=== PATIENT | female | born 1965 | race Caucasian/White ===

== ENCOUNTER → 2016-09-18 | Outpatient (CLI) | payer MEDICARE ==
[~2016-09-18] MED LIST: ACHD5005 PO; ALBU8.5H2 IH; ASP325T PO; ASP81CT PO; ASPI-266 PO; BIRTH CONTROL PO; CHOL500019 PO; CRS350T PO; CYAN100053 IJ; CYCL10TA9 PO; FEXO180T PO; FEXO1TAB42 PO; GBPN300C; GBPN600T PO; GFN600TCR PO; HYDR-3714 PO; HYDR1CAP2; HYDR1TAB86 PO; IBP800T; IBP800T PO; IBUP-30 PO; IBUP800T26 PO; LEVO500T69 PO; MEGE20TA6; METO-272 PO; MONT10TA21 PO; MTP50T PO; OXYC-12 PO; OXYC-272 PO; OXYC-281 PO; OXYC1TAB28 PO; PREG150C PO; PREG75CA PO; TRIA1CAP PO; TRIA1TAB2; TRIA1TAB2 PO; TRIA1TAB3 PO; TRIA1TAB5 PO; TRM50T; VIT1TABL83 PO; ZOVIA PO; [UNRECOGNIZED DRUG - OTHER] PO; b-12 IM
--- NOTE | 2016-09-18 14:12 | Diagnostic Imaging Report ---
INDICATION: Right knee pain. AP, oblique, and lateral views of the right knee are obtained. FINDINGS: There is moderate medial joint space narrowing with osteophyte formation. Lateral joint space appears relatively preserved. There is mild patellofemoral spurring. There is no acute-appearing bony abnormality. IMPRESSION: Osteoarthritic changes of the right knee, especially in the medial compartment. No definite acute bony abnormality. Dictated by: Dictated on workstation # [id number]
== END ==
LOC: RAD 13:55
PROVIDERS: ATTEND Internal Medicine
DX: M25.561 Pain in right knee (principal)
CPT/HCPCS: 73562

== ENCOUNTER → 2016-09-28 | Outpatient (CLI) | payer MEDICARE ==
--- NOTE | 2016-09-28 12:14 | Diagnostic Imaging Report ---
PROCEDURE: MRI right joint lower extremity without contrast. TECHNIQUE: Multiplanar, multisequence non contrast-enhanced MRI of the right lower extremity was accomplished. INDICATION: Right knee pain. FINDINGS: There is a moderate suprapatellar effusion. The extensor mechanism demonstrates mild tendinosis in the distal quadriceps and distal patellar tendons with no significant tear seen otherwise. The ACL and the PCL are intact. There is a complex tear involving the posterior horn and extending into the body of the medial meniscus. There is extrusion of the body of the medial meniscus as well. The lateral meniscus demonstrates increased signal within the substance of the meniscus itself without definite tear, likely degenerative related. The MCL is slightly buckled by the extruded meniscus with no tear. The lateral collateral ligament complex appears intact. There is a tricompartment osteophyte formation most prominent in the medial and lateral compartments. There is a severe cartilage thinning in the medial compartment with subchondral reactive edema. The lateral compartment demonstrates mild thinning of the cartilage only. The patellofemoral compartment demonstrates also relatively preserved thickness of the cartilage with evidence of cartilage fissuring however. The muscle bulk and signal around the knee is normal. There is a tiny Belcher's cyst measuring 1 x 0.3 x 2.9 cm craniocaudal dimension with some adjacent free fluid suggestive of leakage. IMPRESSION: 1. Prominent osteoarthritis changes, severe in the medial compartment. 2. Complex tear involving the posterior horn of the medial meniscus extending to the body. There is also extrusion of the body of the medial meniscus. 3. Leaking small Belcher's cyst. 4. Moderate suprapatellar effusion. Dictated by: Dictated on workstation # [id number]
== END ==
LOC: RAD 10:26
PROVIDERS: ATTEND Nurse Practitioner
DX: M23.231 Derangement of other medial meniscus due to old tear or injury, right knee (principal); M17.11 Unilateral primary osteoarthritis, right knee; M66.0 Rupture of popliteal cyst; M25.461 Effusion, right knee
CPT/HCPCS: 73721

== ENCOUNTER → 2017-11-26 | Outpatient (CLI) | payer MEDICARE ==
[~2017-11-26] MED LIST changes: +IOHEXOL 350 MG/ML 100 ML (OMNIPAQUE 350) VIAL IV ONE; +NS 250 ML (IVPB) BAG IV ONE
== END ==
LOC: RAD 07:23
PROVIDERS: ATTEND Internal Medicine
DX: M54.16 Radiculopathy, lumbar region (principal); Z53.8 Procedure and treatment not carried out for other reasons

== ENCOUNTER 2018-01-11 07:29 | Day surgery (SDC) | payer MEDICARE ==
[~2018-01-11] VITALS: Ht 177.8 cm; Wt 104.3 kg
[~2018-01-11 07:29] MED LIST changes: -IOHEXOL 350 MG/ML 100 ML (OMNIPAQUE 350) VIAL IV ONE; -NS 250 ML (IVPB) BAG IV ONE
--- OUTSIDE RECORDS SUMMARY | 2018-01-11 07:35 | XMS REPORT | Continuity of Care Document ---
Author Author [facility] Organization [facility] Address Unknown Phone Unavailable Allergies Active Description Code Type Severity Reaction Onset Reported/Identified Relationship to Patient Clinical Status Yes erythromycin base [id number] Drug Allergy Mild HIVES,N/V 07/22/2009 Yes Sulfa (Sulfonamide Antibiotics) [id number] Drug Allergy Mild HIVES 2009 Yes TAPE TAPE Unknown N/A 01/07/2013 Yes azithromycin [id number] Drug Allergy Unknown HIVES 07/02/2013 Medications There is no data. 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 04/23/2012 Ot 785.1 PALPITATIONS 04/23/2012 Ot 794.30 ABN CARDIOVASC STUDY NOS 04/23/2012 Ot V58.69 OTH MED,LT, CURRENT USE 07/22/2012 Ot 785.1 PALPITATIONS 08/29/2012 Ot 847.0 SPRAIN OF NECK 08/29/2012 Ot 847.1 SPRAIN THORACIC REGION 08/29/2012 Ot E000.8 OTHER EXTERNAL CAUSE STATUS 08/29/2012 Ot E849.0 ACCIDENT IN HOME 08/29/2012 Ot E927.0 OVEREXERTION FROM SUDDEN STRENUOUS MOVEM 08/29/2012 Ot V57.1 PHYSICAL THERAPY NEC 10/12/2012 SUZIE MAGALLANES, EVELYN Mathis Ot 682.6 CELLULITIS OF LEG 01/07/2013 ROSS GALINDO Ot 724.4 LUMBOSACRAL NEURITIS NOS 01/07/2013 ROSS GALINDO Ot 924.8 MULTIPLE CONTUSIONS NEC 01/07/2013 ROSS GALINDO Ot 959.19 OTH INJURY OF OTHER SITES OF TRUNK 01/07/2013 ROSS GALINDO Ot E000.0 CIVILIAN ACTIVITY DONE FOR INCOME OR PAY 01/07/2013 ROSS GALINDO Ot E849.6 ACCIDENT IN PUBLIC BLDG 01/07/2013 ROSS GALINDO Ot E885.9 FALL FROM SLIPPING, TRIPPING, OR STUMBLI 02/21/2013 SOFYA GRAHAM MD Ot 401.9 HYPERTENSION NOS 02/21/2013 SOFYA GRAHAM MD Ot 493.90 ASTHMA, UNSPECIFIED 02/21/2013 SOFYA GRAHAM MD Ot 724.02 SPINAL STENOSIS, LUMBAR REG, W/OUT NEURO 02/21/2013 SOFYA GRAHAM MD Ot 724.4 LUMBOSACRAL NEURITIS NOS 02/21/2013 SOFYA GRAHAM MD Ot 737.30 IDIOPATHIC SCOLIOSIS 05/22/2014 Ot 722.52 05/22/2014 Ot 959.19 05/22/2014 Ot E000.8 05/22/2014 Ot E030 05/22/2014 Ot E849.6 05/22/2014 Ot E888.9 05/22/2014 Ot 214.9 05/22/2014 Ot V72.83 05/22/2014 Ot V74.8 05/22/2014 Ot 719.06 05/22/2014 Ot 959.7 05/22/2014 Ot E000.8 05/22/2014 Ot E849.0 05/22/2014 Ot E888.9 05/22/2014 Ot 241.0 05/22/2014 Ot 397.0 05/22/2014 Ot 424.0 05/22/2014 Ot 785.1 05/22/2014 Ot 786.59 05/22/2014 Ot 785.1 05/22/2014 Ot 786.59 05/22/2014 Ot 785.1 05/22/2014 Ot V58.69 05/22/2014 Ot 785.1 05/22/2014 ALIA MILLER DO Ot 724.3 05/22/2014 SOFYA GRAHAM MD Ot 724.02 05/22/2014 SOFYA GRAHAM MD Ot V72.63 05/22/2014 SOFYA GRAHAM MD Ot V74.8 05/22/2014 SOFYA GRAHAM MD Ot 724.02 05/22/2014 SOFYA GRAHAM MD Ot 737.30 05/22/2014 SOFYA GRAHAM MD Ot 738.4 05/22/2014 SOFYA GRAHAM MD Ot V45.4 05/27/2014 ALIA MILLER DO Ot 268.9 VITAMIN D DEFICIENCY NOS 05/27/2014 ALIA MILLER DO Ot 722.10 LUMBAR DISC DISPLACEMENT 05/27/2014 ALIA MILLER DO Ot V45.4 ARTHRODESIS STATUS 06/08/2014 Ot 722.52 06/08/2014 Ot 959.19 06/08/2014 Ot E000.8 06/08/2014 Ot E030 06/08/2014 Ot E849.6 06/08/2014 Ot E888.9 06/08/2014 Ot 214.9 06/08/2014 Ot V72.83 06/08/2014 Ot V74.8 06/08/2014 Ot 719.06 06/08/2014 Ot 959.7 06/08/2014 Ot E000.8 06/08/2014 Ot E849.0 06/08/2014 Ot E888.9 06/08/2014 Ot 241.0 06/08/2014 Ot 397.0 06/08/2014 Ot 424.0 06/08/2014 Ot 785.1 06/08/2014 Ot 786.59 06/08/2014 Ot 785.1 06/08/2014 Ot 786.59 06/08/2014 Ot 785.1 06/08/2014 Ot V58.69 06/08/2014 Ot 785.1 06/08/2014 ALIA MILLER DO Ot 724.3 06/08/2014 SOFYA GRAHAM MD Ot 724.02 06/08/2014 SOFYA GRAHAM MD Ot V72.63 06/08/2014 SOFYA GRAHAM MD Ot V74.8 06/08/2014 SOFYA GRAHAM MD Ot 724.02 06/08/2014 SOFYA GRAHAM MD Ot 737.30 06/08/2014 SOFYA GRAHAM MD Ot 738.4 06/08/2014 SOFYA GRAHAM MD Ot V45.4 06/19/2014 ANGI MAGALLANES, TOPHER Ot 574.10 CHOLELITH W CHOLECYS NEC 06/26/2014 ALIA MILLER DO Ot 458.9 06/26/2014 ALIA MILLER DO Ot 785.0 07/02/2014 ANGI MAGALLANES, TOPHER Ot 574.20 07/02/2014 ANGI MAGALLANES, TOPHER Ot V72.63 07/02/2014 ANGI MAGALLANES, TOPHER Ot V74.8 09/01/2014 ANGI MAGALLANES, TOPHER Ot 574.20 09/01/2014 ANGI MAGALLANES, TOPHER Ot V72.63 09/01/2014 ANGI MAGALLANES, TOPHER Ot V74.8 11/05/2014 TAMARA KENT Ot 717.3 03/03/2015 ALIA MILLER DO Ot R05 COUGH 03/23/2015 ALIA MILLER DO Ot M54.16 03/23/2015 ALIA MILLER DO Ot T84.498A 03/29/2015 ALIA MILLER DO Ot M54.16 03/29/2015 ALIA MILLER DO Ot T84.498A 06/24/2015 ALIA MILLER DO Ot R00.2 01/05/2016 Ot 241.0 NONTOX UNINODULAR GOITER 01/05/2016 Ot 397.0 TRICUSPID VALVE DISEASE 01/05/2016 Ot 424.0 MITRAL VALVE DISORDER 01/05/2016 Ot 785.1 PALPITATIONS 01/05/2016 Ot 786.59 CHEST PAIN NEC 01/05/2016 Ot 785.1 PALPITATIONS 01/05/2016 Ot 786.59 CHEST PAIN NEC 01/05/2016 Ot 785.1 PALPITATIONS 01/05/2016 Ot V58.69 OTH MED,LT, CURRENT USE 01/05/2016 Ot 785.1 PALPITATIONS 01/05/2016 ALIA MILLER DO Ot 724.3 SCIATICA 01/05/2016 SOFYA GRAHAM MD Ot 724.02 SPINAL STENOSIS, LUMBAR REG, W/OUT NEURO 01/05/2016 SOFYA GRAHAM MD Ot V72.63 PRE-PROCEDURAL LABORATORY EXAMINATION 01/05/2016 SOFYA GRAHAM MD Ot V74.8 SCREEN-BACTERIAL DIS NEC 01/05/2016 SOFYA GRAHAM MD Ot 724.02 SPINAL STENOSIS, LUMBAR REG, W/OUT NEURO 01/05/2016 SOFYA GRAHAM MD Ot 737.30 IDIOPATHIC SCOLIOSIS 01/05/2016 SOFYA GRAHAM MD Ot 738.4 ACQ SPONDYLOLISTHESIS 01/05/2016 SOFYA GRAHAM MD Ot V45.4 ARTHRODESIS STATUS 01/05/2016 ALIA MILLER DO Ot 458.9 HYPOTENSION NOS 01/05/2016 ALIA MILLER DO Ot 785.0 TACHYCARDIA NOS 01/05/2016 TOPHER WHITLEY MD Ot 574.20 CHOLELITHIASIS NOS 01/05/2016 TOPHER WHITLEY MD Ot V72.63 PRE-PROCEDURAL LABORATORY EXAMINATION 01/05/2016 TOPHER WHITLEY MD Ot V74.8 SCREEN-BACTERIAL DIS NEC 01/05/2016 TAMARA KENT [facility]ITAL[facility] JOB TITLES Ot 717.3 DERANG MED MENISCUS NEC 01/05/2016 ALIA MILLER DO Ot M54.16 RADICULOPATHY, LUMBAR REGION 01/05/2016 ALIA MILLER DO Ot T84.498A [facility] COMPL OF INTERNAL ORTH DEVICES, IMP 01/05/2016 ALIA MILLER DO Ot R00.2 PALPITATIONS 01/07/2016 ALIA MILLER DO Ot E01.0 IODINE-DEFICIENCY RELATED DIFFUSE (ENDEM 03/02/2016 ALIA MILLER DO Ot E01.0 IODINE-DEFICIENCY RELATED DIFFUSE (ENDEM 03/07/2016 ALIA MILLER DO Ot E01.0 IODINE-DEFICIENCY RELATED DIFFUSE (ENDEM 09/18/2016 Ot 397.0 TRICUSPID VALVE DISEASE 09/18/2016 Ot 424.0 MITRAL VALVE DISORDER 09/18/2016 Ot 785.1 PALPITATIONS 09/18/2016 Ot 786.59 CHEST PAIN NEC 09/18/2016 Ot 785.1 PALPITATIONS 09/18/2016 Ot 786.59 CHEST PAIN NEC 09/18/2016 Ot 785.1 PALPITATIONS 09/18/2016 Ot V58.69 OT MED,LT, CURRENT USE 09/18/2016 Ot 785.1 PALPITATIONS 09/18/2016 ALIA MILLER DO Ot 724.3 SCIATICA 09/18/2016 SOFYA GRAHAM MD Ot 724.02 SPINAL STENOSIS, LUMBAR REG, W/OUT NEURO 09/18/2016 SOFYA GRAHAM MD Ot V72.63 PRE-PROCEDURAL LABORATORY EXAMINATION 09/18/2016 SOFYA GRAHAM MD Ot V74.8 SCREEN-BACTERIAL DIS NEC 09/18/2016 SOFYA GRAHAM MD Ot 724.02 SPINAL STENOSIS, LUMBAR REG, W/OUT NEURO 09/18/2016 SOFYA GRAHAM MD Ot 737.30 IDIOPATHIC SCOLIOSIS 09/18/2016 SOFYA GRAHAM MD Ot 738.4 ACQ SPONDYLOLISTHESIS 09/18/2016 SOFYA GRAHAM MD Ot V45.4 ARTHRODESIS STATUS 09/18/2016 ALIA MILLER DO Ot 458.9 HYPOTENSION NOS 09/18/2016 ALIA MILLER DO Ot 785.0 TACHYCARDIA NOS 09/18/2016 TOPHER WHITLEY MD Ot 574.20 CHOLELITHIASIS NOS 09/18/2016 TOPHER WHITLEY MD Ot V72.63 PRE-PROCEDURAL LABORATORY EXAMINATION 09/18/2016 TOPHER WHITLEY MD Ot V74.8 SCREEN-BACTERIAL DIS NEC 09/18/2016 TAMARA KENT Ot 717.3 DERANG MED MENISCUS NEC 09/18/2016 ALIA MILLER DO Ot M54.16 RADICULOPATHY, LUMBAR REGION 09/18/2016 ALIA MILLER DO Ot T84.498A [facility] COMPL OF INTERNAL ORTH DEVICES, IMP 09/18/2016 ALIA MILLER DO Ot R00.2 PALPITATIONS 09/18/2016 ALIA MILLER DO Ot E01.0 IODINE-DEFICIENCY RELATED DIFFUSE (ENDEM 10/19/2016 TAMARA KENT Ot M17.11 UNILATERAL PRIMARY OSTEOARTHRITIS, RIGHT 10/19/2016 TAMARA KENT Ot M23.231 DERANG OF MEDIAL MENISCUS DUE TO OLD TEA 10/19/2016 TAMARA KENT Ot M25.461 EFFUSION, RIGHT KNEE 10/19/2016 TAMARA KENT Ot M66.0 RUPTURE OF POPLITEAL CYST 10/23/2016 ALIA MILLER DO Ot M25.561 PAIN IN RIGHT KNEE 11/26/2017 Ot 785.1 PALPITATIONS 11/26/2017 Ot V58.69 [facility] MED,LT, CURRENT USE 11/26/2017 Ot 785.1 PALPITATIONS 11/26/2017 ALIA MILLER DO Ot 724.3 SCIATICA 11/26/2017 SOFYA GRAHAM MD Ot 724.02 SPINAL STENOSIS, LUMBAR REG, W/OUT NEURO 11/26/2017 SOFYA GRAHAM MD Ot V72.63 PRE-PROCEDURAL LABORATORY EXAMINATION 11/26/2017 SOFYA GRAHAM MD Ot V74.8 SCREEN-BACTERIAL DIS NEC 11/26/2017 SOFYA GRAHAM MD Ot 724.02 SPINAL STENOSIS, LUMBAR REG, W/OUT NEURO 11/26/2017 SOFYA GRAHAM MD Ot 737.30 IDIOPATHIC SCOLIOSIS 11/26/2017 SOFYA GRAHAM MD Ot 738.4 ACQ SPONDYLOLISTHESIS 11/26/2017 SOFYA GRAHAM MD Ot V45.4 ARTHRODESIS STATUS 11/26/2017 ALIA MILLER DO Ot 458.9 HYPOTENSION NOS 11/26/2017 ALIA MILLER DO Ot 785.0 TACHYCARDIA NOS 11/26/2017 TOPHER WHITLEY MD Ot 574.20 CHOLELITHIASIS NOS 11/26/2017 TOPHER WHITLEY MD Ot V72.63 PRE-PROCEDURAL LABORATORY EXAMINATION 11/26/2017 TOPHER WHITLEY MD Ot V74.8 SCREEN-BACTERIAL DIS NEC 11/26/2017 TAMARA KENT Ot 717.3 DERANG MED MENISCUS NEC 11/26/2017 ALIA MILLER DO Ot M54.16 RADICULOPATHY, LUMBAR REGION 11/26/2017 ALIA MILLER DO Ot T84.498A [facility] COMPL OF INTERNAL ORTH DEVICES, IMP 11/26/2017 ALIA MILLER DO Ot R00.2 PALPITATIONS 11/26/2017 ALIA MILLER DO Ot E01.0 IODINE-DEFICIENCY RELATED DIFFUSE (ENDEM 11/26/2017 ALIA MILLER DO Ot M25.561 PAIN IN RIGHT KNEE 11/26/2017 TAMARA KENT Ot M17.11 UNILATERAL PRIMARY OSTEOARTHRITIS, RIGHT 11/26/2017 TAMARA KENT Ot M23.231 DERANG OF MEDIAL MENISCUS DUE TO OLD TEA 11/26/2017 TAMARA KENT Ot M25.461 EFFUSION, RIGHT KNEE 11/26/2017 TAMARA KENT Ot M66.0 RUPTURE OF POPLITEAL CYST 11/27/2017 ALIA MILLER DO Ot M54.16 RADICULOPATHY, LUMBAR REGION 11/27/2017 ALIA MILLER DO Ot Z53.8 PROCEDURE AND TREATMENT NOT CARRIED OUT Procedures Code Description Performed By Performed On 81.06 LUMBAR LUMBOSACRAL FUSION OF ANTERIOR 02/17/2013 81.07 LUMBAR LUMBOSACRAL FUSION OF POSTERIOR 02/17/2013 81.63 FUSION/REFUS OF 4-8 VERTEBRAE 02/17/2013 84.51 INSERTION OF INTERBODY SPINAL FUSION DEV 02/17/2013 Results There is no data. Encounters ACCT No. Visit Date/Time Discharge Status Pt. Type Provider Facility Loc./Unit Complaint [id number] 12/11/2017 09:00:00 12/11/2017 23:59:59 CLS Preadmit ALIA MILLER DO [facility] RAD LOW BACK PAIN [id number] 11/26/2017 07:23:00 11/26/2017 23:59:59 CLS Outpatient ALIA MILLER DO [facility] RAD RACICULOPATHY [id number] 09/28/2016 10:26:00 09/28/2016 23:59:59 CLS Outpatient TAMARA KENT [facility] RAD M23.231 [id number] 09/18/2016 13:55:00 09/18/2016 23:59:59 CLS Outpatient ALIA MILLER DO [facility] RAD RT KNEE PAIN [id number] 01/05/2016 08:50:00 01/05/2016 23:59:59 CLS Outpatient ALIA MILLER DO [facility] RAD THYROMEGALY,TYPE 1 DIABETES [id number] 06/08/2015 08:00:00 06/08/2015 23:59:59 CLS Outpatient ALIA MILLER DO [facility] CARD PALPITATIONS [id number] 03/09/2015 09:11:00 03/09/2015 23:59:59 CLS Outpatient ALIA MILLER DO [facility] RAD FAILED LUMBAR FUSION [id number] 03/02/2015 08:20:00 03/03/2015 08:29:00 DIS Outpatient ALIA MILLER DO [facility] LAB COUGH [id number] 10/06/2014 08:07:00 10/06/2014 23:59:59 CLS Outpatient DONTE TAMARA Chelsey GUERRA [facility] RAD MEDIAL MENISCUS TEAR [id number] 06/19/2014 09:46:00 06/19/2014 16:40:00 DIS Outpatient TOPHER WHITLEY MD [facility] SDC GALLSTONES [id number] 06/18/2014 11:49:00 06/18/2014 23:59:59 CLS Outpatient TOPHER WHITLEY MD [facility] PREOP GALLSTONES [id number] 06/08/2014 09:19:00 06/08/2014 23:59:59 CLS Outpatient ALIA MILLER DO [facility] CARD HYPOTENSION SYMPTOMS OF CARDIOVASULAR SYSTM [id number] 05/27/2014 08:30:00 05/27/2014 14:50:00 DIS Outpatient ALIA MILLER DO [facility] RAD DISPLACEMENT OF LUMBAR [id number] 07/02/2013 08:28:00 07/02/2013 23:59:59 CLS Outpatient SOFYA GRAHAM MD [facility] RAD LUMBAR STENOSIS [id number] 02/17/2013 07:45:00 02/21/2013 11:45:00 DIS Inpatient SOFYA GRAHAM MD [facility] SURGICAL LUMBAR STENOSIS [id number] 02/11/2013 11:59:00 02/11/2013 23:59:59 CLS Outpatient SOFYA GRAHAM MD [facility] PREOP LUMBAR STENOSIS [id number] 01/07/2013 16:50:00 01/07/2013 19:38:00 DIS Emergency ROSS GALINDO [facility] ER FELL AT WORK [id number] 12/11/2012 12:57:00 12/11/2012 23:59:59 CLS Outpatient ALIA MILLER DO [facility] RAD RT SCIATICA [id number] 10/10/2012 15:03:00 10/12/2012 17:45:00 DIS Inpatient SUZIE MAGALLANES, EVELYN Mathis [facility] SURGICAL CELLULITIS OF LEFT LEG [id number] 05/22/2014 11:29:00 Document Registration [id number] 05/22/2014 11:29:00 Document Registration [id number] 07/29/2012 15:58:00 Document Registration [id number] 07/23/2012 15:00:00 Document Registration [id number] 06/24/2012 16:46:00 Document Registration [id number] 05/17/2012 07:00:00 Document Registration [id number] 04/23/2012 08:07:00 Document Registration [id number] 02/19/2012 11:01:00 Document Registration [id number] 02/14/2012 12:52:00 Document Registration [id number] 11/29/2010 10:28:00 Document Registration [id number] 10/02/2010 23:18:00 Document Registration [id number] 12/03/2009 15:11:00 Document Registration [id number] 07/22/2009 15:44:00 Document Registration [id number] 06/21/2009 14:51:00 Document Registration [id number] 10/07/2014 04:24:54 ACT Document Registration
[2018-01-11 07:40] VITALS: BP 128/87
[2018-01-11 08:00] LABS: HEMOGLOBIN 13.2 G/DL (11.5-16.0); MEAN PLATELET VOLUME 10.9 FL (7.4-10.4); RED BLOOD COUNT 4.48 10^6/uL (4.35-5.85); RED CELL DISTRIBUTION WIDTH 13.4 % (10.0-14.5); WHITE BLOOD COUNT 9.9 10^3/uL (4.3-11.0)
[2018-01-11 08:13] LABS: PROTHROMBIN TIME PATIENT 13.1 SEC (12.2-14.7)
[2018-01-11] MEDS: IOHEXOL 240 MGI/ML 20 ML (OMNIPAQUE) VIAL IV ONE (08:57)
[2018-01-11 09:03] VITALS: BP 115/73
[2018-01-11] MEDS ORDERED: ACETAMINOPHEN 500 MG TAB (TYLENOL) PO PRN (09:15)
--- NOTE | 2018-01-11 09:27 | Diagnostic Imaging Report ---
PROCEDURE: CT lumbar spine with contrast. TECHNIQUE: Multiple contiguous axial images were obtained through the lumbar spine after the intrathecal administration of contrast. Sagittal and coronal reformations were then performed. INDICATION: Back pain. COMPARISON: Comparison is made with prior examination from 03/09/2015. FINDINGS: There are postsurgical changes of an L2 through L5 fusion again noted. There has been an L4 laminectomy. The vertebral body heights are well maintained. There is some degenerative lumbar rotoscoliosis predominantly convex to the right. Conus medullaris is seen at approximately L1 is normal in appearance. The T11-T12 disc is unremarkable. At T12-L1, there is loss of disc height and signal intensity. There is broad-based annular bulging resulting in slight effacement of ventral thecal sac. There is no significant neuroforaminal encroachment. There has been marked progression of the degenerative disc disease at L1-L2. There is almost complete loss of disc space with marked sclerosis in the endplates. There is broad-based annular bulging, facet disease and thickening of the ligamentum flavum. There is some moderate central spinal stenosis. There is moderate right and severe left neuroforaminal encroachment. At L2-L3, the spinal canal is adequately decompressed. There is some persistent at least moderate neuroforaminal encroachment on the left. At L3-L4 spinal canal is adequately decompressed. There is marked facet disease. There is qamy-oj-veckitqx left neuroforaminal encroachment. There is no neuroforaminal encroachment on the right. At L4-L5 spinal canal is adequately decompressed. There is no significant neuroforaminal encroachment. At L5-S1, there is vacuum disc. There is some broad-based annular bulging. There is moderate right neuroforaminal encroachment. There is no significant neuroforaminal encroachment on the left. The abdominal aorta is nonaneurysmal. The visualized portions of the kidneys are unremarkable. Gallbladder appears to be surgically absent. IMPRESSION: Stable post surgical changes of an L2 through L5 posterior instrumentation and decompression as described. There is no change in the appearance of the misplaced left L3 pedicle screw. Diffuse lumbar spondylosis and multilevel degenerative disc disease as detailed above. There has been further marked progression of the degenerative disc disease at L1-L2. Dictated by: Dictated on workstation # [id number]
--- NOTE | 2018-01-11 09:57 | Diagnostic Imaging Report ---
INDICATION: Back pain. TECHNIQUE AND FINDINGS: After explaining the risks, benefits and alternatives of the procedure to the patient written consent was obtained. Patient was placed on a table in prone position. Patient's back was prepped and draped utilizing maximal sterile barrier technique. Local anesthesia was obtained with 2% lidocaine. Needle was advanced into the thecal sac under fluoroscopic control at L4 through the laminectomy defect. 12 cc of Omnipaque 240 was injected. The needle was removed and adequate hemostasis was obtained. There are postsurgical changes at L2-L4 fusion. There appears to be a moderate ventral extradural defect at L1-2. IMPRESSION: Successful lumbar myelogram. Please correlate with post myelography CT findings. Dictated by: Dictated on workstation # [id number]
[2018-01-11 10:15] VITALS: BP 130/85
[2018-01-11 10:45] VITALS: BP 127/80
== END 2018-01-11 10:55 | disposition home or self-care (01) ==
LOC: RAD 07:29 → SDC 09:03 → RAD 10:55
PROVIDERS: ATTEND Internal Medicine
DX: M47.816 Spondylosis without myelopathy or radiculopathy, lumbar region (principal); M51.35 Other intervertebral disc degeneration, thoracolumbar region; M51.27 Other intervertebral disc displacement, lumbosacral region; M99.73 Connective tissue and disc stenosis of intervertebral foramina of lumbar region; M51.25 Other intervertebral disc displacement, thoracolumbar region; M41.86 Other forms of scoliosis, lumbar region; Z98.890 Other specified postprocedural states; Z98.1 Arthrodesis status
CPT/HCPCS: 36415; 62284; 72132; 72265; 77002; 84703; 85027; 85610; 85730

== ENCOUNTER → 2019-05-08 | Outpatient (CLI) | payer MEDICARE ==
[~2019-05-08] MED LIST changes: +GADOBUTROL 10 MMOL/10 ML (GADAVIST) VIAL IV ONE
--- NOTE | 2019-05-08 15:11 | Diagnostic Imaging Report ---
PROCEDURE: MR imaging of the brain with and without contrast. TECHNIQUE: Multiplanar, multisequence MR imaging of the brain was performed with and without contrast. INDICATION: Diplopia. FINDINGS: Ventricles and sulci are within normal limits for size. Frazier and white matter signal intensities are unremarkable. There is no restricted diffusion to indicate an infarct. Visualized paranasal sinuses are clear. There is fluid filling the left mastoid air cells. There is no abnormal contrast enhancement. IMPRESSION: No acute intracranial abnormality is identified. There is fluid present within left mastoid air cells and clinical correlation would be of use. Dictated by: Dictated on workstation # [id number]
== END ==
LOC: RAD 13:30
PROVIDERS: ATTEND Ophthalmology
DX: H53.2 Diplopia (principal); G45.9 Transient cerebral ischemic attack, unspecified; H49.22 Sixth [abducent] nerve palsy, left eye
CPT/HCPCS: 70553

== ENCOUNTER → 2020-08-11 | Outpatient (CLI) | payer MEDICARE ==
[~2020-08-11] MED LIST changes: -GADOBUTROL 10 MMOL/10 ML (GADAVIST) VIAL IV ONE
--- NOTE | 2020-08-11 14:17 | Diagnostic Imaging Report ---
CLINICAL INDICATION: Patient with cervical spine pain and left arm pain. No injury. Patient does heavy lifting. EXAM: MRI of the cervical spine performed without IV contrast. Sequences include sagittal T1, sagittal T2, sagittal STIR, and axial T2. COMPARISON: None. FINDINGS: Limited visualization of the posterior fossa shows no significant abnormality. There is localized slight deformity of the cervical cord seen at the C5-C6 level due to disk spurs. Otherwise cervical spinal cord has normal cord caliber with no abnormal signal. There is no acute fracture or dislocation. There are multilevel cervical spine degenerative spurs. There is no significant paraspinal soft tissue abnormality. C1-C2: There are degenerative spurs involving the atlantoodontoid interval. There is no significant central canal narrowing. C2-C3: There is a small central posterior disk herniation. There is moderate left facet arthropathy and mild right facet arthropathy. There is mild left neural foramen narrowing and no significant right neural foramen narrowing. There is minimal encroachment upon the central canal anteriorly. C3-C4: There is xape-zx-gmzejtzr bilateral facet arthropathy. There is a small right paracentral disk spur/herniation. There is mild central canal narrowing. There is mild right neural foramen narrowing and no significant left neural foramen narrowing. C4-C5: There is diffuse disk bulge with superimposed disk herniation in the left paracentral/subarticular region. There is ebqv-kc-ftpczxkq loss of disk space height. There is mild bilateral facet arthropathy. There is severe left neural foramen narrowing and no significant right neural foramen narrowing. There is mild central canal stenosis. C5-C6: There is a diffuse disk bulge and moderate loss of disk space height and bilateral uncinate spurs. There is severe bilateral neural foramen narrowing. There is qpvp-ub-vouetons central canal narrowing. There is moderate left facet arthropathy and mild right facet arthropathy. C6-C7: There is diffuse disk bulge with moderate loss of disk space height and bilateral hypertrophic spurs. There is moderate central canal narrowing. There is severe bilateral neural foramen narrowing. C7-T1: There is a small posterior disk bulge. There is minimal central canal narrowing. IMPRESSION: There is fduqycnj-xr-hlognx multilevel cervical spine degenerative disk disease which is described above. Dictated by: Dictated on workstation # [id number]
== END ==
LOC: RAD 08:00
PROVIDERS: ATTEND Internal Medicine
DX: M47.812 Spondylosis without myelopathy or radiculopathy, cervical region (principal); M50.21 Other cervical disc displacement, high cervical region; M50.221 Other cervical disc displacement at C4-C5 level; M50.222 Other cervical disc displacement at C5-C6 level; M50.223 Other cervical disc displacement at C6-C7 level; M50.23 Other cervical disc displacement, cervicothoracic region; M48.02 Spinal stenosis, cervical region
CPT/HCPCS: 72141